=== PATIENT | male | born 1995 | race Caucasian/White ===

== ENCOUNTER 2020-01-16 17:57 | Inpatient (IN) | payer MEDICAID ==
[~2020-01-16] VITALS: Ht 170.2 cm; Wt 72.1 kg
[~2020-01-16 17:57] MED LIST: CIPR-278 PO
[2020-01-16 20:39] LABS: BASOPHILS % (AUTO) 0.5 % (0.0-2.0); EOSINOPHILS % (AUTO) 6.1 % (1.0-6.0); HEMATOCRIT 43.5 % (41-53); HEMOGLOBIN 14.4 g/dL (13.5-17.5); LYMPHOCYTES # (AUTO) 2.5 K/uL (1.0-4.8); LYMPHOCYTES % (AUTO) 27.6 % (22.0-44.0); MEAN CORPUSCULAR HEMOGLOBIN 29.6 pg (26.0-34.0); MEAN CORPUSCULAR HGB CONC 33.2 G/dL (31.0-37.0); MEAN CORPUSCULAR VOLUME 89 fL (80-100); MONOCYTES # (AUTO) 0.7 K/uL (0.1-1.0); MONOCYTES % (AUTO) 7.4 % (2.0-9.0); NEUTROPHILS # (AUTO) 5.3 K/uL (1.8-7.7); NEUTROPHILS % (AUTO) 58.4 % (40.0-70.0); PLATELET COUNT (AUTO) 380 K/uL (150-450); RED BLOOD CELL COUNT(AUTO) 4.89 MIL/uL (4.50-5.90); RED CELL DISTRIBUTION WIDTH 13.8 % (11.5-14.5)
[2020-01-16 20:51] LABS: ANION GAP 8 mmol/L (8-16); CALCIUM, TOTAL 9.1 mg/dL (8.8-10.5); CARBON DIOXIDE 29 mmol/L (22-29); CHLORIDE 102 mmol/L (98-107); CREATININE 1.28 mg/dL (0.60-1.30); GLOMERULAR FILTR. RATE CALC > 60 mL/min (>60); GLUCOSE,RANDOM 101 mg/dL (70-110); POTASSIUM 3.5 mmol/L (3.5-5.1); SODIUM SERUM 139 mmol/L (136-145); UREA NITROGEN, BLOOD 15 mg/dL (7-18)
[2020-01-16 20:58] LABS: ALANINE AMINOTRANSFERASE 22 U/L (12-78); ALBUMIN 4.5 g/dL (3.4-5.0); ALKALINE PHOSPHATASE 77 U/L (46-116); ASPARTATE AMINOTRANSFERASE 15 U/L (15-37); BILIRUBIN,TOTAL 0.4 mg/dL (0.1-1.0); TOTAL PROTEIN, SERUM 7.3 g/dL (6.4-8.2)
[2020-01-16 20:59] LABS: AMPHET/METH SCREEN,URINE POSITIVE (NEGATIVE); BARBITURATE SCREEN, URINE NEGATIVE (NEGATIVE); BENZODIAZEPINES SCREEN,URINE POSITIVE (NEGATIVE); CANNABINOID SCREEN,URINE POSITIVE (NEGATIVE); COCAINE SCREEN,URINE NEGATIVE (NEGATIVE); METHADONE SCREEN, URINE NEGATIVE (NEGATIVE); OPIATE SCREEN,URINE NEGATIVE (NEGATIVE)
[2020-01-16 21:11] LABS: PHENCYCLIDINE SCREEN,URINE NEGATIVE (NEGATIVE)
[2020-01-16] MEDS ORDERED: ZOLPIDEM TARTRATE 10 MG TABLET PO PRN (22:15)
[2020-01-17] MEDS: LORazepam 2 MG TABLET PO PRN ×3 (00:43→17:15)
[2020-01-17 01:10] VITALS: BP 135/95
[2020-01-17 01:27] VITALS: BP 135/95
[2020-01-17 03:15] LABS: APPEARANCE,URINE CLEAR (CLEAR); BILIRUBIN,URINE NEGATIVE (NEGATIVE); GLUCOSE, URINE (UA) NEGATIVE (NEGATIVE); KETONES,URINE NEGATIVE (NEGATIVE); LEUKOCYTE ESTERASE ,URINE NEGATIVE (NEGATIVE); NITRATE,URINE NEGATIVE (NEGATIVE); OCCULT BLOOD,URINE NEGATIVE (NEGATIVE); PROTEIN,URINE NEGATIVE (NEGATIVE); UROBILINOGEN,URINE 0.2 mg/dL (<=1.0)
[2020-01-17 08:06] LABS: CHOL/HDL RATIO 2.2 (4.2-7.3)
[2020-01-17] MEDS ORDERED: MAGNESIUM HYDROXIDE SUSPENSION 30 ML UDCUP PO PRN (08:45)
[2020-01-17] MEDS ORDERED: ONDANSETRON HCL 4 MG TABLET PO PRN (08:45)
[2020-01-17] MEDS ORDERED: PETROLATUM,WHITE 28 GM JELLY TP PRN (08:45)
[2020-01-17] MEDS ORDERED: DOCUSATE SODIUM 100 MG CAPSULE PO PRN (08:45)
[2020-01-17] MEDS ORDERED: BACITRACIN 28.4 GM OINTMENT TP PRN (08:45)
[2020-01-17] MEDS ORDERED: IBUPROFEN 600 MG TABLET PO PRN (08:45)
[2020-01-17] MEDS ORDERED: BENZOCAINE/MENTHOL LOZENGE MM PRN (08:45)
[2020-01-17] MEDS ORDERED: MAG HYDROX/AL HYDROX/SIMETH ES 30 ML SUSPENSION UDCUP PO PRN (08:45)
[2020-01-17] MEDS ORDERED: LOPERAMIDE HCL 2 MG CAPSULE PO PRN (08:45)
[2020-01-17] MEDS ORDERED: ACETAMINOPHEN 325 MG TABLET PO PRN (08:45)
[2020-01-17] MEDS ORDERED: CloNIDine HCL 0.1 MG TABLET PO PRN (08:45)
[2020-01-17] MEDS ORDERED: OMEPRAZOLE 20 MG CAPSULE PO PRN (08:45)
[2020-01-17] MEDS ORDERED: ALBUTEROL SULFATE HFA 90 MCG/PUFF 8 GM INHALER IH PRN (08:45)
[2020-01-17] MEDS: SERTRALINE HCL 50 MG TABLET PO SCH (08:51)
[2020-01-17 08:55] VITALS: BP 142/88
[2020-01-17 16:58] VITALS: BP 147/75
[2020-01-18] MEDS: LORazepam 2 MG TABLET PO PRN ×2 (02:00→15:33)
[2020-01-18] MEDS: HALOPERIDOL 5 MG TABLET PO PRN ×2 (02:00→15:33)
[2020-01-18 03:21] VITALS: BP 138/81
[2020-01-18 08:55] VITALS: BP 128/81
[2020-01-18] MEDS: SERTRALINE HCL 50 MG TABLET PO SCH (09:30)
[2020-01-18 17:00] VITALS: BP 132/79
[2020-01-19 08:34] VITALS: BP 145/99
[2020-01-19] MEDS: SERTRALINE HCL 50 MG TABLET PO SCH (08:36)
[2020-01-19 10:50] VITALS: BP 143/82
[2020-01-19] MEDS: LORazepam 2 MG TABLET PO PRN (10:52)
[2020-01-19] MEDS ORDERED: SERT50TA12 PO (14:48)
== END 2020-01-19 17:30 | disposition home or self-care (01) | DRG 885 ==
LOC: EMS 18:00 → 3EI 23:13
PROVIDERS: ADMIT Psychiatry & Neurology Child & Adolescent Psychiatry; ATTEND Psychiatry & Neurology Psychiatry
DX: F33.2 Major depressive disorder, recurrent severe without psychotic features (principal); F15.20 Other stimulant dependence, uncomplicated; Z79.899 Other long term (current) drug therapy; F41.9 Anxiety disorder, unspecified; G47.00 Insomnia, unspecified; K59.00 Constipation, unspecified; F12.90 Cannabis use, unspecified, uncomplicated
CPT/HCPCS: G0480